=== PATIENT | male | born 1965 | race Caucasian/White ===

== ENCOUNTER → 2017-03-28 | Outpatient (CLI) | payer MEDICARE | LOC: CT 08:05 | DX: R63.4 Abnormal weight loss (principal); R11.0 Nausea; R11.10 Vomiting, unspecified; Z85.820 Personal history of malignant melanoma of skin | CPT/HCPCS: 36415; 71020; 74160; 82565; 84520; J7050; Q9962 ==

== ENCOUNTER → 2022-07-14 | Outpatient (CLI) | payer MEDICARE | LOC: KOH-I 10:31 | DX: R10.84 Generalized abdominal pain (principal); K76.0 Fatty (change of) liver, not elsewhere classified | CPT/HCPCS: 76700 ==

== ENCOUNTER → 2022-07-29 | Outpatient (CLI) | payer MEDICARE | LOC: CT 11:00 | DX: R10.31 Right lower quadrant pain (principal) | CPT/HCPCS: 36415; 74160; 82565; 84520; Q9967 ==